=== PATIENT | female | born 1995 | race Caucasian/White ===

== ENCOUNTER 2016-09-13 17:39 | Emergency (ER) | payer OTHER ==
[2011-10-27 06:07] VITALS: BMI 27.5
[2016-09-13 19:14] LABS: APPEARANCE CLEAR (CLEAR); COLOR YELLOW (YELLOW)
[2016-09-13 19:15] LABS: BILIRUBIN NEGATIVE (NEGATIVE); GLUCOSE NEGATIVE (NEGATIVE); KETONE NEGATIVE (NEGATIVE); LEUKOCYTE ESTERASE 1+ (NEGATIVE); NITRITE NEGATIVE (NEGATIVE); PROTEIN NEGATIVE (NEGATIVE); UROBILINOGEN NORMAL (NORMAL)
[2016-09-13 19:18] LABS: BACTERIA FEW /hpf (NONE SEEN); EPITHELIAL CELLS 0-5 /hpf (0-5); RED CELLS - URINE 0-5 /hpf (0-5); WHITE CELLS - URINE 0-5 /hpf (0-5)
[2016-09-13 19:22] LABS: BASOPHILS 0.3 % (0.0-2.0); EOSINOPHILS 0 % (0-7); HEMATOCRIT 33.7 % (36.0-48.0); IMMATURE GRANULOCYTES 0.9 % (0-5); LYMPHOCYTES 9.4 % (15-50); MCHC 32.6 g/dL (31.0-37.0); MCV 91.8 fL (80.0-100.0); MEAN PLATELET VOLUME 11.1 fL (7.4-10.4); MONOCYTES 5.6 % (2-11); NEUTROPHILS 83.8 % (40-80); RBC 3.67 10x6/uL (4.00-5.40); RDW 12.4 % (11.5-14.5)
[2016-09-13 19:26] LABS: PLATELET COUNT 174 10x3/uL (130-400)
[2016-09-13 19:46] LABS: ALBUMIN 2.7 g/dL (3.4-5.0); ALKALINE PHOSPHATASE 151 U/L (46-116); ALT (SGPT) 28 U/L (10-68); BILIRUBIN - TOTAL 0.35 mg/dL (0.2-1.3); CALC OSMOLALITY 269 mosm/kg (275-300); CALCIUM 8.5 mg/dL (8.5-10.1); CARBON DIOXIDE 25.5 mmol/L (21.0-32.0); CHLORIDE - SERUM 103 mmol/L (98-107); CREATININE - SERUM 0.6 mg/dL (0.6-1.3); GLUCOSE 81 mg/dL (74-106); POTASSIUM - SERUM 3.9 mmol/L (3.5-5.1); PROTEIN - SERUM 7.4 g/dL (6.4-8.2); SODIUM 137 mmol/L (136-145); UREA NITROGEN 4 mg/dL (7-18); eGFR NON AFRICAN AMERICAN > 90 mL/min (90-120)
== END 2016-09-13 22:05 | disposition home or self-care (01) ==
LOC: D.ER 17:39
PROVIDERS: Emergency Medicine
DX: J09.X2 Influenza due to identified novel influenza A virus with other respiratory manifestations (principal); F17.200 Nicotine dependence, unspecified, uncomplicated

== ENCOUNTER 2016-10-18 09:41 | Inpatient (IN) | payer OTHER ==
[2016-10-18] VITALS (8 sets, daily range): BP systolic 102–120; BP diastolic 53–79; Ht 167.6 cm; Wt 73.9 kg
[~2016-10-18] VITALS: Ht 167.6 cm; Wt 73.9 kg
[2016-10-18] MEDS ORDERED: PRENATABS RX TA1 TAB PO (10:32)
[2016-10-18 10:38] LABS: HEMATOCRIT 34.7 % (36.0-48.0); HEMOGLOBIN 11.4 g/dL (12-16); MCH 29.3 pg (26.0-34.0); MCHC 32.9 g/dL (31.0-37.0); MCV 89.2 fL (80.0-100.0); MEAN PLATELET VOLUME 11.6 fL (7.4-10.4); RBC 3.89 10x6/uL (4.00-5.40); RDW 12.6 % (11.5-14.5); WBC 10.2 10x3/uL (4.8-10.8)
[2016-10-18 10:47] LABS: UDS - AMPHET NEGATIVE QUAL (NEGATIVE); UDS - BARB NEGATIVE QUAL (NEGATIVE); UDS - BENZO NEGATIVE QUAL (NEGATIVE); UDS - COCAINE NEGATIVE QUAL (NEGATIVE); UDS - METH NEGATIVE QUAL (NEGATIVE); UDS - OPIATE NEGATIVE QUAL (NEGATIVE); UDS - PCP NEGATIVE QUAL (NEGATIVE); UDS - THC POSITIVE QUAL (NEGATIVE)
--- NOTE | 2016-10-18 12:54 | NUR ---
RECEIVED FROM RECOVERY VIA BED TO ROOM 1273. IV NS WITH 20 U PITOCIN PLACED ON ALARIS PUMP AT 125 ML/HR. VS ASSESSED. U/2 FIRM MIDLINE, RUBRA SMALL, CLEAN PERIPADS ON. LTCS INCISION DRESSING DRY AND INTACT. ICE PACK OVER CLOTH ON INCISION. SCDS IN PLACE AND ON PUMP. UNABLE TO MOVE LEGS AT THIS TIME. DENIES PAIN AT THIS TIME. POSITIONED TO LEFT SIDE WITH PILLOWS. DISCUSSED FIBERGLASS PIPE COVERING SUPERVISOR PUMP AND PAIN MANAGEMENT. ALSO DISCUSSED INCENTIVE SPIROMETER AND TCDB Q 2 HOURS. VERBALIZED UNDERSTANDING ON INSTRUCTIONS. USED X 3 NOW. SIDE RAILS UP X 2, CALL LIGHT IN REACH. FAMILY MEMBER IN NURSERY.
--- NOTE | 2016-10-18 13:21 | NUR ---
FILTER TANK OPERATOR INITIATED. PT DENIES FEELING ANY PAIN AT THIS TIME. UNABLE TO MOVE LE. FOB IN ROOM. LAYING ON LEFT SIDE. ENCOURAGED TO DEEP BREATH AND COUGH FREQUENTLY. HX OF SMOKING CIG AND MARIJUANA. SCDS AND ICE PACK IN PLACE. WATER AT BEDSIDE, ENCOURAGED ONLY SMALL SIPS AT FIRST TO AVOID NAUSEA. VERBALIZED UNDERSTANDING. SIDE RAILS UP, CALL LIGHT AND FILTER TANK OPERATOR CONTROL IN REACH.
[2016-10-18 14:03] LABS: APPEARANCE CLEAR (CLEAR); BACTERIA FEW /hpf (NONE SEEN); BILIRUBIN NEGATIVE (NEGATIVE); COLOR YELLOW (YELLOW); EPITHELIAL CELLS OCC /hpf (0-5); GLUCOSE NEGATIVE (NEGATIVE); KETONE NEGATIVE (NEGATIVE); LEUKOCYTE ESTERASE NEGATIVE (NEGATIVE); NITRITE NEGATIVE (NEGATIVE); PROTEIN 2+ mg/dL (NEGATIVE); RED CELLS - URINE 0-5 /hpf (0-5); SPECIFIC GRAVITY 1.005 (1.005-1.020); UROBILINOGEN NORMAL (NORMAL); WHITE CELLS - URINE 0-5 /hpf (0-5)
--- NOTE | 2016-10-18 14:04 | NUR ---
LAYING ON LEFT SIDE. INCENTIVE SPIROMETER USED X 3. U/U FIRM MIDLINE, RUBRA MOD ON PAD WITH SILVER 3 CM CLOT NOTED ON PAD. NO ACTIVE BLEEDING WITH FUNDAL CHECK. CLEAN PADS X 2 ON. AZEVEDO DRAINING CLEAR YELLOW URINE AND IS ATTACHED TO LEG WITH LEG PLATE. SIDE RAILS UP X 2, CALL LIGHT AND IMPLEMENTATION SPECIALIST PAYROLL CONTROL WITHIN REACH. UNABLE TO MOVE LE AT THIS TIME. POSITIONED WITH PILLOW.
--- NOTE | 2016-10-18 15:06 | NUR ---
SITTING UP IN BED. Malinda WATSON RN FROM NURSERY IN ROOM ASSISTING WITH . PT REQUESTED JELLO AND LEMON [place] DRINK. IS BEGINNING TO GET SLIGHT MOVEMENT IN LOWER EXTREMETIES AND SLIGHT ABDOMINAL PAIN. ENCOURAGED TO USE GRINDING OPERATOR NEEDED AND INSTRUCTED ON PURPOSE FOR HER TO BE THE ONLY ONE WHO PUSHES GRINDING OPERATOR CONTROL. U/U FIRM, RUBRA SMALL WITH 1 CM CLOT NOTED. CLEAN DEBBIE-PAD IN PLACE. SIDE RAILS UP, CALL LIGHT IN REACH, GRINDING OPERATOR BUTTON IN REACH, TO CALL IF ANYTHING IS NEEDED. VERBALIZED UNDERSTANDING.
--- NOTE | 2016-10-18 16:05 | NUR ---
SITTING UP IN BED TALKING TO VISITORS. BEGINNING TO FEEL CRAMPING 6-7/10. ENCOURAGED CONTINUED USE OF NUTRITIONISTS AND DISCUSSED TORADOL FOR ADDED RELIEF. U/U FIRM, RUBRA SMALL, CLEAN DEBBIE-PAD ON. INCENTIVE SPIROMETER USED X 3, FRESH ICE PACK TO INCISION. IN ROOM. CALL LIGHT AND NUTRITIONISTS CONTROL IN REACH. SIDE RAILS UP X 2
[2016-10-18 17:02] LABS: BASOPHILS 0.1 % (0.0-2.0); EOSINOPHILS 0.3 % (0-7); HEMATOCRIT 32.2 % (36.0-48.0); HEMOGLOBIN 10.5 g/dL (12-16); IMMATURE GRANULOCYTES 0.3 % (0-5); LYMPHOCYTES 10.9 % (15-50); MCH 29.4 pg (26.0-34.0); MCHC 32.6 g/dL (31.0-37.0); MCV 90.2 fL (80.0-100.0); MEAN PLATELET VOLUME 11.3 fL (7.4-10.4); MONOCYTES 4.9 % (2-11); NEUTROPHILS 83.5 % (40-80); RBC 3.57 10x6/uL (4.00-5.40); RDW 12.5 % (11.5-14.5)
[2016-10-18 17:03] LABS: PLATELET COUNT 163 10x3/uL (130-400); WBC 15.4 10x3/uL (4.8-10.8)
--- NOTE | 2016-10-18 17:07 | NUR ---
SITTING UP IN BED EATING CLEAR LIQUIDS FOR DINNER. DENIES PAIN AT THIS TIME. HAS NOT HAD TO USE PR INTERNSHIP SINCE TORADOL WAS GIVEN. INFANT IN NURSERY. NO REQUESTS AT THIS TIME. SIDE RAILS UP X 2, CALL LIGHT IN REACH ALONG WITH PR INTERNSHIP CONTROL.
--- NOTE | 2016-10-18 18:04 | NUR ---
SIITING UP IN BED SIPPING ON BROTH. SMILING TALKING TO VISITOR. NO COMPLAINTS OF PAIN AT THIS TIME OR REQUEST. INSTRUCTED TO CALL WHEN FINISHE EATING SO PERICARE AND PADS CAN BE CHANGED. SAID SHE WILL CALL.
--- NOTE | 2016-10-18 18:15 | NUR ---
DEBBIE-CARE GIVEN, CLEAN PADS, CHUX, DEBBIE-PADS AND GOWN ON. RUBRA SMALL. ICE PACK TO INCISION. INCENTIVE SPIROMETER X 3, POSITIONED TO RIGHT SIDE FOR COMFORT WITH PILLOWS. GIVEN TO PATIENT IN PREPARATION FOR BREAST FEEDING AFTER COMPLETION OF CARE. SIDE RAILS UP X 2, CALL LIGHT AND IT SENIOR SOFTWARE ENGINEER JAVA CONTROLLER IN REACH. FRESH WATER, ICE AND LEMON[place] DRINK GIVEN. NO REQUESTS. STILL WITH "SLIGHT TINGLING" IN FEET. TOLERATED POSITION CHANGES WITHOUT PROBLEM.
--- NOTE | 2016-10-18 19:05 | NUR ---
RCVD THIS G2 NOW P2 21 Y/O FEMALE FROM Alvin PERSON AM RN. PT LYING ON RIGHT SIDE AND AWAKENS UPON THIS RN ENTERING ROOM. PT DENIES FEELING ANY PAIN OR THE NEED TO USE THE CCIE AT THIS TIME. I.S. TEACHING DONE AT THIS TIME WITH RETURN DEMONSTRATION OF 1500 ML. BREATH SOUNDS CLEAR & UNLABORED X2. PPP. S1, S2. PIV TO R HAND, C/D/I WITH NO ERYTHEMA OR EDEMA AT SITE NOTED. FUNDUS FIRM U/1, SMALL LOCHIA RUBRA NOTED ON PERIPAD. LTCS INCISION C/D/I. NO EDEMA NOTED TO BLE. SCD'S ON, CONNECTED TO PUMP, AND PUMP FUNCTIONING PROPERLY. BOWEL SOUNDS HYPOACTIVE X4. PT DENIES HAVING PASSED GAS OF YET. GIFT BOX PROVIDED FOR PT. PT STATES "I DON'T NEED ANYTHIING RIGHT NOW. I'M JUST TIRED AND WANT TO REST." I&O ASSESSED, PUMPS CLEARED AT THIS TIME. BED LOW, WHEELS LOCKED, CL IN REACH, SIDE RAILS UP X2.
--- NOTE | 2016-10-18 20:08 | NUR ---
PT SITTING UP IN BED VISITING WITH GUESTS. VISITOR HOLDING AT THIS TIME. PT RATES PAIN 3/10 CURRENTLY AND HAS UTILITIZED THE MECHANICAL REPAIR WORKER. PT STATES "THE MECHANICAL REPAIR WORKER HELPS SOME." SMALL PILLOW TO BRACE ABD PROVIDED. PERIPADS CHANGED AT THIS TIME. PT DENIES FURTHER NEEDS.
--- NOTE | 2016-10-18 21:38 | NUR ---
I&O ASSESSED. FAMILY IN ROOM VISITING WITH PT. PT DENIES NEEDS AT THIS TIME. WILL CONTINUE POC.
--- NOTE | 2016-10-18 22:38 | NUR ---
I&O ASSESSED. PT REQUESTS & RECEIVES LEMON [place] SODA, JELLO, AND TORADOL 30MG/1ML IV FOR PAIN RATED 6/10. IN FOB'S ARMS. PT DENIES FURTHER NEEDS CURRENTLY. WILL CONTINUE POC.
--- NOTE | 2016-10-18 23:08 | NUR ---
ROUNDS MADE. PT SITTING UP IN BED WITH INFANT UP IN ARMS. NBN RN IN ROOM ASSISTING WITH BF. FOB @ BEDSIDE. PT RATES PAIN 2/10 CURRENTLY AND TOLERABLE. PT DENIES FURTHER NEEDS. WILL CONTINUE POC.
[2016-10-19 00:12] VITALS: BP 99/55
--- NOTE | 2016-10-19 00:12 | NUR ---
PT LYING ON RT SIDE WITH PILLOWS SUPPORTING FOR COMFORT. PT RATES PAIN 3/10 AT THIS TIME. SMALL LOCHIA RUBRA NOTED ON PERIPADS. PADS AND CHUCKS CHANGED AT THIS TIME. PT DENIES FURTHER NEEDS. WILL CONTINUE TO MONITOR.
--- NOTE | 2016-10-19 02:10 | NUR ---
ROUNDS MADE. PUMPS CLEARED AT THIS TIME. PT RATES PAIN 4/10. SPECIAL ED ASSISTANT BUTTON PROVIDED FOR PT AND PRESSED PER PT AT THIS TIME. PT REPOSITIONED SELF TO LEFT SIDE WITH PILLOWS SUPPORTING FOR COMFORT. 540ML CLEAR YELLOW URINE EMPTIED FROM AZEVEDO AT THIS TIME. FOB REMAINS AT BEDSIDE. PT DENIES FURTHER NEEDS AT THIS TIME.
[2016-10-19 04:16] VITALS: BP 92/55
--- NOTE | 2016-10-19 04:16 | NUR ---
ROUNDS MADE. PT LYING ON LT SIDE WITH PILLOWS SUPPORTING FOR SUPPORT. PT AROUSES TO LIGHT VERBAL STIMULI AND REPOSITIONS SELF TO RT SIDE. PT RATES PAIN 4/10 AND PRESSES PATIENT RESOURCE SPECIALIST BUTTON AT THIS TIME. PUMPS CLEARED. 400 ML CLEAR LIGHT YELLOW URINE EMPTIED FROM UROMETER. FRESH ICE PACK PROVIDED TO INCISION AREA. PT DENIES FURTHER NEEDS AT THIS TIME. WILL CONTINUE TO MONITOR.
--- NOTE | 2016-10-19 05:26 | NUR ---
PAIN REASSESSMENT COMPLETED. PT RESTING ON RT SIDE, EYES CLOSED, RESP EVEN & UNLABORED. PT LEFT UNDISTURBED AT THIS TIME.
[2016-10-19 05:56] LABS: BASOPHILS 0.1 % (0.0-2.0); EOSINOPHILS 0.4 % (0-7); HEMATOCRIT 27.8 % (36.0-48.0); IMMATURE GRANULOCYTES 0.4 % (0-5); LYMPHOCYTES 11.4 % (15-50); MCH 28.9 pg (26.0-34.0); MCHC 32.4 g/dL (31.0-37.0); MCV 89.4 fL (80.0-100.0); MEAN PLATELET VOLUME 11.7 fL (7.4-10.4); MONOCYTES 5.6 % (2-11); NEUTROPHILS 82.1 % (40-80); PLATELET COUNT 135 10x3/uL (130-400); RBC 3.11 10x6/uL (4.00-5.40); RDW 12.7 % (11.5-14.5)
[2016-10-19 06:07] LABS: WBC 10.4 10x3/uL (4.8-10.8)
--- NOTE | 2016-10-19 06:26 | NUR ---
ROUNDS MADE. PT SITTING IN BED, HOB 30 DEGREES WITH UP IN ARMS BONDING. PT RATES PAIN 3/10 AT THIS TIME AND PRESSES LAUNDRY OPERATOR BUTTON. PUMPS CLEARED AT THIS TIME, 300 ML CLEAR YELLOW URINE EMPTIED FROM AZEVEDO. PT REPORTS PASSING GAS X3. FUNDUS REMAINS FIRM U/1, SCANT LOCHIA RUBRA NOTED ON PERIPAD. ICE PACK STILL @ INCISION AREA. CUP OF ICE PROVIDED PER PT REQUEST. PT DENIES FURTHER NEEDS. WILL CONTINUE POC.
--- NOTE | 2016-10-19 06:42 | NUR ---
PT RINGS CL. RN TO BEDSIDE. PT REQUESTING NEW PADS. SMALL LOCHIA RUBRA NOTED ON PERIPADS. PADS AND CHUCKS CHANGED AT THIS TIME. SWADDLED AND HAT PLACED PER THIS RN PER PT REQUEST. PT DENIES FURTHER NEEDS AT THIS TIME.
[2016-10-19 07:05] VITALS: BP 106/54
--- NOTE | 2016-10-19 07:05 | NUR ---
BEDSIDE REPORT RECEIVED FROM Allan OSEGUERA RN. PT HAS LARGE WHITE DRESSING NOTED OVER INCISION/LOWER ABDOMEN, C/D/I, ABDOMEN PALPATES SOFT. PT DENIES NEEDING PAIN MEDICATION AT THIS TIME. PRIMARY IVF OF 0.9 %NS WITH 20 UNITS PIT COMPLETED. IV SL, DILAUDID AUTO PARTS MANAGER STOPPED. PT HAS AZEVEDO CATH IN PLACE DRAING YELLOW URINE. PT HAS SCD'S IN PLACE. PT HAS COUGH PILLOW, EXERCISES DONE, WITH I/S DONE ALSO. PT STATES "I'M READY TO GET OUT OF THIS BED, AND EAT REAL FOOD." SR UP X 2, CALL LIGHT AND PHONE WITHIN REACH.
--- NOTE | 2016-10-19 07:30 | NUR ---
CALL MADE TO DR. BUTTS FOR ROUTINE POST OP DAY 1 ORDERS. PROGRESS REPORT GIVEN TO [facility] REVIEWED WITH .
--- NOTE | 2016-10-19 07:45 | NUR ---
DR. BUTTS TO PT'S ROOM. REMOVES LARGE WHITE DRESSING, AND INSTRUCTS PT ON LOOP SUTURES, ONE ON EACH END OF INCISION. PT IS TO CLIP AT HOME AFTER [address], OR IF PT REMAINS IN HOSPITAL, NURSE MAY CLIP SUTURES.
--- NOTE | 2016-10-19 08:00 | NUR ---
AZEVEDO CATH REMOVED WITH 400 ML'S YELLOW URINE EMPTIED. PERICARE DONE WITH WARM WET WASHCLOTHS, TOWEL/CHUX CHANGED, PERIPAD IN PLACE. SCANT RUBRA LOCHIA NOTED, NO CLOTS. PT NOW HAS REGULAR DIET ON BEDSIDE TABLE. LARGE GLASS OF ICE WATER SERVED. SR UP X 2, CALL LIGHT AND PHONE WITHIN REACH. INFANT REMAINS IN ROOM IN CRIB.
--- NOTE | 2016-10-19 12:55 | NUR ---
pt ambulatory, with infant in crib, to ws #[id number]. sig other assisting in transferring personal items. pt oriented to room. to bed, srup x 2, call light and phone within reach. report given to viviana blanco rn that pt has arrived to room.
--- NOTE | 2016-10-19 15:20 | NUR ---
PT REQUESTED IBUPROFEN. PAIN IS A LEVEL 3.
--- NOTE | 2016-10-19 15:33 | NUR ---
PT WAS RECEIVED FROM L& D. PT IS AMBULATORY WITH BABY IN CRIB AND FATHER OF BABY. SHE OFFERS NO COMPLAINTS. GEN- AWAKE AND ALERT. LUNGS- CLEAR. HEART- RRR. ABD SOFT, WITH BIKINI LINE INCISION WHICH IS CLEAN DRY AND INTACT. SMALL LOCIA RUBRA. SHE HAS A SLINIE LOCK WHICH IS PATENT R WRIST. BED IS LOW. SIDE RAILS UP X 2 AND CALL LIGHT IS IN REACH.
--- NOTE | 2016-10-19 16:27 | NUR ---
PT REQUEST A NICOTINE PATCH. ORDERED PER DR BUTTS FOR PT.
--- NOTE | 2016-10-19 16:40 | NUR ---
PT REQUESTED PUDDING. GAVE HER 2 CHOCOLATE PUDDINGS. PT OFFERS NO COMPLAINTS. MEREDITHA DREA IS STILL SMALL. BED IS LOW, SIDE RAILS UP X 2 AND CALL LIGHT IN REACH.
--- NOTE | 2016-10-19 16:41 | NUR ---
PRABHJOT HOLT WITH CASE MANAGEMENT HERE TO SEE PT.
--- NOTE | 2016-10-19 17:18 | NUR ---
CM met w/ the mother at the bedside. Had attempted to meet w/ her earlier however she had visitors. She and the father live at [address] [place] [address] in [place], [place]. She states they have been together for 7 yrs. They also have a 5 year old son. The mother states he is excited about his new brother. The father of the baby is Mykel Henson. He reportedly is also very happy about the . The mother works at [employer] on [employer]. The father works for [employer] "when he can". They have the necessary baby equipment. She has spoken w/ WIC and called WIC today. Left a message regarding the . She has provided information for the Medicaid application for the infant to the hospital financial advisors. The family does not receive any additional assistance or services ie food stamps. The infant will follow w/ the [facility]. Mom's PCP is DR Shelby. KIZZY explained I had received a consult due to positive urine test for THC. The Mom informed KIZZY that [facility] Director Of Purchasing, Melany Jaime, had visited earlier today to interview her. MS Jaime will meet w/the family when the mother & infant are discharged to home. Melany Jaime [phone] ext [phone]. The patient explains she had been on an antidepressant and antianxiety medication prior to for anxiety. She plans to visit DR Shelby to restart her medication. Smoked the THC irregularly to assist w/ anxiety. She says she also plans to stop smoking cigarettes. Discussed harmful effects especially for infants and children. Mother was comfortable discussing these issues w/ KIZZY. The patient will have transportation to home . States she has an car seat. Denies any need at this time. Advised CM is available to her if she needs assistance. The nursery nurse advised CM the father is very happy about the . He is very thankful for any instruction. The staff feels the family will do well. [facility] will do home visit.
--- NOTE | 2016-10-19 17:33 | NUR ---
PT REQUESTED PAIN MED. PAIN IS A 03/08. GIVEN PERCOCET 5/.
[2016-10-19 19:10] VITALS: BP 126/52
--- NOTE | 2016-10-19 19:10 | NUR ---
AWAKE DURING INITIAL ROUNDS. INTRODUCED SELF. V/S TAKEN. ASSESSMENT DONE. STATUS POST REPEAT C/S--DAY 1. . LOW TRANSVERSE INCISION WITH DERMABOND. LOCHIA RUBRA LIGHT. VOIDING WELL, PASSING FLATUS PER PATIENT. ENCOURAGED AMBULATION. IN HER ARMS.
--- NOTE | 2016-10-19 21:01 | NUR ---
PAIN LEVEL "8"/10 FROM ABD INCISION AND UTERINE CRAMPING. PERCOCET 5/325 1tab / MOTRIN 600mg 1tab PO GIVEN FOR PAIN MANAGEMENT. FOB IN THE ROOM.
--- NOTE | 2016-10-19 21:44 | NUR ---
AMBULATED IN THE [place] TO THE NURSERY AND BACK TO HER ROOM.
--- NOTE | 2016-10-19 23:15 | NUR ---
EYES CLOSED. LEFT UNDISTURBED. INFANT IN THE ROOM IN OPEN CRIB. FOB SLEEPING.
[2016-10-20 00:10] VITALS: BP 113/68
--- NOTE | 2016-10-20 00:10 | NUR ---
AWAKE FOR V/S AND . UP TO THE BATHROOM. VOIDED.
--- NOTE | 2016-10-20 01:05 | NUR ---
PAIN LEVEL "7"/10 FROM ABD INCISION. PERCOCET 5/325 1tab PO GIVEN FOR PAIN CONTROL. HER BABY AT THIS TIME. GOOD INFANT-MATERNAL BONDING.
--- NOTE | 2016-10-20 03:03 | NUR ---
PAIN LEVEL "4"/10 FROM ABD INCISION.MOTRIN 600mg 1tab PO GIVEN FOR PAIN CONTROL. INFANT IN THE ROOM ASLEEP IN OPEN CRIB. FOB HERE.
[2016-10-20 05:18] VITALS: BP 121/76
--- NOTE | 2016-10-20 05:18 | NUR ---
CALL LIGHT ANSWERED. PAIN LEVEL 5/10 FROM ABD INCISION. PERCOCET 5/325 1tab PO GIVEN FOR PAIN CONTROL. V/S STABLE. GETTING READY TO BREASTFEED HER BABY. SLEPT ON AND OFF DURING THE NIGHT. COONTINUING PLAN OF CARE. ANTICIPATES POSSIBLE DISCHARGE TODAY.
[2016-10-20 08:05] VITALS: BP 96/58
--- NOTE | 2016-10-20 08:05 | NUR ---
PATIENT ASLEEP, RESTING QUIETLY WITH EYES CLOSED. SHE AWOKE EASILY TO MY ENTRY. VSS. SHE DENIES NEEDS. POSITIONED OVER BED TABLE FOR HER TO EAT. FF, MIDLINE AT DANIELLE UMBILICUS. SHE STATE SHTAT HSE BLEEDING IS VERY SMALL, ALMOST SCANT. SHE SHOWED HER INCISION. EDGES ARE WELL APPROXIMATED. SHE ASKE IF I WILL REMOVE THE KNOTS PRIOR TO HER DISCHARGE. INFORMED THAT THIS WILL BE DISCUSSED WITH DR. BUTTS PRIOR TO TAKING ANY SUCH ACTION. SHE IS UP AD KI. CALL LIGHT IS WITHIN HER REACH. MALE IN THE BEDISDE CHAIR.
--- NOTE | 2016-10-20 09:30 | NUR ---
AFTER DISCUSSING WITH DR. BUTTS, CONFIRMED WITH THE PATINET THAT I WILL NOT BE REMOVING HER KNOTS FROM THE STITCHES IN THE WOUND. SHE STAT ESHTAT DR. BUTTS INSTRUCTED HER ON HOW TO DO THIS. SHE REQUESTS [facility]. DENIES OTHER NEEDS. PAIN MEDICATION WAS GIVEN FOR C/O CRAMPING IN HER ABDOMEN AND INCISIONAL DISCOMFORT.
[2016-10-20] MEDS ORDERED: IBUPROFEN600 MG PO (09:59)
[2016-10-20] MEDS ORDERED: PERCOCET 5-3251 TAB PO (09:59)
--- NOTE | 2016-10-20 10:15 | NUR ---
PATIENT OUT AMBULATING IN THE HALLWAY, TO THE GIFT SHOP. SHE DENIES NEEDS. SHE DID RETURN WITH BAG OF PURCHASE. SHE DENIES PAIN, JUST SORENESS. FOB IN THE ROOM. SHE IS SMILING AND APPEARS HAPPY. STATES THAT FOB IS GOING HOME TO APPEALS RN THE CARSEAT SOON. INFORMED HER THAT I HAVE HER DISCHARGE ORDERS AND WILL BE PREPARING HER PAPERWORK FOR DISCHARGE. SHE UNDERSTANDS THAT WILL BE DISCHARGED HOME TODAY WELL.
--- NOTE | 2016-10-20 11:14 | NUR ---
Jake Schmid 10/20/16 LE@ 9:20 S: Patient states she feels great, delivered by , 2nd baby, two boys. States at first baby took some time latching on but as for the last several feedings, he has been doing great. O: Patient sitting up in bed, attempting to latch baby to the left breast. FOB at bedside. Explain takes time and patience in the beginning. Explain how to hold for feeding, turn infant tummy to tummy, nose opposite of nipple, gently support infant head, and allow infant to self-latch. Patient left nipple does look red, possible because of how infant is being latched to the breast. Asked patient if her nipple hurts, she states yes, somewhat. Verifying infant is latched correct to the breast for every feeding, can help prevent sore nipples. Patient attempted to change position for feeding, cradle, self-latched. mouth 140 degrees, round cheeks, sucking in a rocking motion. Patient shows no signs of discomfort or pain. States her nipple doesn't hurt now. Provided and explain handouts on engorgement, the first week, hand expression, feeding cues, positions for , and sore nipples. Encouraged to continue to latch infant for every feeding, ask for help as needed. Patient does get WIC, made WIC appointment, provided date and time. Will follow up. A: Patient in room appears confident with . P: Continue to support exclusively while in the hospital. Sandy Tang, CLC
[2016-10-20 11:16] LABS: RAPID PLASMA REAGIN Non Reactive (Non Reactive)
--- NOTE | 2016-10-20 11:30 | NUR ---
PATIENT IS AWAKE AND ALERT, SITTING UP, BED IN HIGH FOWLERS. SHE IS BREAST FEEDING HER INFANT. REPORTED TO HER THAT I HAVE HER DISCHARGE PAPERWORK ALL TOGETHER IF SHE'D LIKE TO GO OVER IT WHEN SHE IS FINISHED FEEDING.
--- NOTE | 2016-10-20 13:05 | NUR ---
DISCUSSED AT LENGTH THE PATIENT'S DISCHARGE INSTRUCTIONS. INCLUDED WOUND CARE, FOLLOW UP APPT, PAIN CONTROL, S/S OF INFECTION AND FOLLOW UP APPT. PRESCRIPTION GIVEN. SHE EXPRESSED CONCERN FOR POST DEPRESSION. SHE ISN'T GOING TO BE WORKING AND WILL MISS HER COWORKERS AND THE INCOME. THE FOB IS VERY SUPPORTIVE. WE DISCUSSED SOME COPING STRATAGIES AND I ENCOURAGED HER TO DISCUSS THIS WITH HER DOCTOR AT THE FOLLOW UP APPT IN 2 WEEKS. SHE IS BREAST FEEDING AND TOOK ATIVAN.
--- NOTE | 2016-10-20 14:36 | NUR ---
PATIENT IS UP AMBULATING AROUND HER ROOM PREPARING TO GO HOME SHE DENIES NEEDS AT THIS TIME. [facility].
--- NOTE | 2016-10-20 14:46 | NUR ---
PATIENT AMBULATED OUT TO WAITING CAR PER HER REQUEST. TORSTEN HAS IN THE CARSEAT AND WENT AHEAD OF HER. SHE'S REFUSED A WHEELCHAIR ESCORT TO THE FRONT DOOR. DENIES ANY OTHER NEEDS AT THIS TIME.
--- NOTE | 2016-10-27 11:44 | OP ---
PATIENT NAME: BLAINE RIDDLE MEDICAL RECORD: [id number] :94 LOCATION:[facility].[id number] ADMISSION DATE:10/18/16 SURGEON: REJI DYSON MD DATE OF OPERATION: 10/18/2016 PREOPERATIVE DIAGNOSES: 1. Term intrauterine at 39 weeks. 2. Labor. 3. History of previous section. POSTOPERATIVE DIAGNOSES: 1. Term intrauterine at 39 weeks. 2. Labor. 3. History of previous section. PROCEDURE: Repeat low transverse section. SURGEON: Reji Dyson MD ESTIMATED BLOOD LOSS: 1000 cc. INTRAVENOUS FLUIDS: Per anesthesia record. ANESTHESIA: Via spinal. FINDINGS: 1. Viable male , Apgars 9 at 1 and 9 at 5. 2. Placenta delivered manually intact, 3-vessel cord noted. 3. Grossly normal adnexa bilaterally. COMPLICATIONS: None apparent. SPECIMENS: Placenta and cord for gases. PROCEDURE IN DETAIL: The patient was taken to the operating room where spinal anesthesia was achieved without difficulty. The patient was then prepped and draped in normal sterile fashion in the dorsal supine position. Hawkins catheter had been placed and was draining freely. SCDs were on functioning normally. A repeat Pfannenstiel skin incision was made, extended downward to the underlying subcutaneous fat to level of the fascia. The subcutaneous fat was dissected using the Bovie cautery and Borrego scissors. The fascia was nicked in the midline with the scalpel and excised bilaterally using the Borrego scissors. Superior and inferior aspect of the fascial incision were then grasped with Adele clamps times 2, tented upward, and sharply dissected from the underlying rectus muscle using the Bovie cautery and the Borrego scissors. The rectus muscles were then via sharp dissection using the Metzenbaum scissors. Peritoneum was identified and entered bluntly at the superior aspect of the incision. The rectus muscles and pyramidalis were further dissected using sharp dissection with direct visualization of the bladder. The peritoneal incision was extended using the Metzenbaum scissors. A bladder blade was then placed into the pelvis, extensive adhesive disease involving the anterior peritoneum and bladder was dissected downward and the bladder was held down using the bladder blade. A low transverse incision was made with a scalpel and the uterine incision was extended superiorly and inferiorly using the Pelosi method. The head was delivered atraumatically followed by the body. The infant was bulb suctioned OPERATIVE REPORT [id number] BLAINE RIDDLE upon delivery. Cord was clamped times 2 and cut and the infant was handed to awaiting nursery team. Cord was then obtained for gases. The placenta was delivered manually intact, a 3-vessel cord was noted. The uterus was exteriorized, cleared of all clots and debris and massaged until a good uterine tone was noted. The corners were then grasped with the ring forceps. The bladder was identified. The uterus was repaired with 0 Vicryl in a running locked fashion times 2. Several areas were then oversewn with 2-0 Vicryl. A small area at the investment of the bladder was then cauterized in the area of the vagina and FloSeal was placed with good hemostasis noted. Posterior cul-de-sac was then thoroughly irrigated. Uterus was replaced into the pelvis and the uterine incision was again checked for bleeding and found to be hemostatic. FloSeal was placed across the entire uterine incision. Counts were correct times 2. The fascia was repaired with 0 loop PDS times 1 and the skin repaired in a running subcutaneous fashion using 3-0 Monocryl with lateral anchors to the incision. Dermabond was then placed upon the skin. The patient tolerated the procedure well, transferred to postanesthesia recovery stable without incident. TRANSINT:[id number] Voice Confirmation ID: [id number] DOCUMENT ID: [id number] REJI DYSON MD at 1142 CC: [id number] DICTATION DATE: 10/18/16 1229 ELECTRONICS TECHNICIAN APPRENTICE: 10/18/16 1514 ADM IN [place] [id number] [place] [id number]
== END 2016-10-20 14:47 | disposition home or self-care (01) | DRG 765 ==
LOC: D.LDO 09:41 → D.LD 10:03 → D.WS 10-19 15:00
PROVIDERS: ADMIT Obstetrics & Gynecology
PROC: 10D00Z1 Extraction of Products of Conception, Low, Open Approach (ICD-10-PCS; principal; 2016-10-18 10:50)
DX: O34.219 Maternal care for unspecified type scar from previous cesarean delivery (principal); O99.324 Drug use complicating childbirth; Z3A.39 39 weeks gestation of pregnancy; Z37.0 Single live birth; O99.334 Smoking (tobacco) complicating childbirth; F12.90 Cannabis use, unspecified, uncomplicated; O09.33 Supervision of pregnancy with insufficient antenatal care, third trimester

== ENCOUNTER 2018-07-23 13:41 | Emergency (ER) | payer MEDICAID ==
[~2018-07-23] VITALS: Ht 167.6 cm; Wt 64.5 kg
[~2018-07-23 13:41] MED LIST: IBUPROFEN600 MG PO; PERCOCET 5-3251 TAB PO; PRENATABS RX TA1 TAB PO
[2018-07-23 13:44] VITALS: Ht 167.6 cm; Wt 64.5 kg
[2018-07-23 14:01] LABS: APPEARANCE CLEAR (CLEAR); BILIRUBIN NEGATIVE (NEGATIVE); COLOR STRAW (YELLOW); GLUCOSE NEGATIVE (NEGATIVE); HCG URINE NEGATIVE (NEGATIVE); KETONE NEGATIVE (NEGATIVE); NITRITE NEGATIVE (NEGATIVE); PROTEIN NEGATIVE (NEGATIVE); UROBILINOGEN NORMAL (NORMAL)
[2018-07-23 14:04] LABS: BACTERIA FEW /hpf (NONE SEEN); EPITHELIAL CELLS RARE /hpf (0-5); RED CELLS - URINE OCC /hpf (0-5); WHITE CELLS - URINE 0-5 /hpf (0-5)
[2018-07-23 15:00] VITALS: BP 111/62
[2018-07-23 15:18] LABS: HCG SERUM NEGATIVE (NEGATIVE)
== END 2018-07-23 14:49 | disposition home or self-care (01) ==
LOC: D.ER 13:41
PROVIDERS: Emergency Medicine
DX: N92.6 Irregular menstruation, unspecified (principal); F17.200 Nicotine dependence, unspecified, uncomplicated

== ENCOUNTER 2020-11-11 12:21 | Emergency (ER) | payer MEDICAID ==
[~2020-11-11] VITALS: Ht 167.6 cm; Wt 68.2 kg
[2020-11-11 12:34] VITALS: BP 108/71; Ht 167.6 cm; Wt 68.2 kg
[2020-11-11 12:59] LABS: UDS - AMPHET NEGATIVE QUAL (NEGATIVE); UDS - BARB NEGATIVE QUAL (NEGATIVE); UDS - BENZO NEGATIVE QUAL (NEGATIVE); UDS - COCAINE NEGATIVE QUAL (NEGATIVE); UDS - OPIATE NEGATIVE QUAL (NEGATIVE); UDS - PCP NEGATIVE QUAL (NEGATIVE); UDS - THC POSITIVE QUAL (NEGATIVE)
[2020-11-11] MEDS ORDERED: ATIVAN0.5 MG PO (13:08)
[2020-11-11] MEDS ORDERED: LEXAPRO20 MG PO (13:08)
[2020-11-11 13:14] LABS: HCG URINE NEGATIVE (NEGATIVE)
--- NOTE | 2020-11-11 13:40 | NUR ---
DR. CADENA NOTIFIED AND REVIEWED PATIENT'S BEHAVIOR AND ASSESSMENT RESULTS. PATIENT IS A LOW RISK PER DR. CADENA. DR. CADENA STATED TO GIVE RESOURCES TO PATIENT AT TIME OF DISCHARGE. NO FURTHER ORDERS NOTED AT THIS TIME. RESOURCES REVIEWED WITH PATIENT AND SHE VERBALIZED UNDERSTANDING. PATIENT DENIES SI AT THIS TIME. PATIENT DOES ADMIT TO BEING A CUTTER TO RELIEVE ANXIETY AND TO INFLICT PAIN. PT AGREED TO COMPLETE SAFETY PLAN WITH ATTENDING MD.
[2020-11-11] MEDS ORDERED: CLOTRIM ANTIFUN15 GM TOPICAL (13:43)
[2020-11-11 13:45] LABS: BACTERIA MODERATE HPF (NONE SEEN); BILIRUBIN NEGATIVE (NEGATIVE); KETONE NEGATIVE (NEGATIVE); NITRITE NEGATIVE (NEGATIVE); UROBILINOGEN NORMAL mg/dL (< 2); WHITE CELLS - URINE OCC HPF (0-4)
== END 2020-11-11 13:58 | disposition home or self-care (01) ==
LOC: D.ER 12:21
PROVIDERS: Family Medicine
DX: F32.9 Major depressive disorder, single episode, unspecified (principal); L30.9 Dermatitis, unspecified; L30.1 Dyshidrosis [pompholyx]; X83.8XXA Intentional self-harm by other specified means, initial encounter; Y93.9 Activity, unspecified; Y92.9 Unspecified place or not applicable